=== PATIENT | male | born 1980 | race Caucasian/White ===

== ENCOUNTER 2024-12-15 21:40 | Emergency (ER) | payer OTHER ==
[~2024-12-15] VITALS: Ht 182.8 cm; Wt 83.9 kg
[2024-12-15] MEDS ORDERED: IBUPROFEN400 MG PO (21:48)
[2024-12-15] MEDS ORDERED: SUBOXONE 8 MG-1 EACH PO (21:48)
[2024-12-15] MEDS ORDERED: LAMICTAL25 MG PO (21:48)
[2024-12-16] MEDS ORDERED: NAPROXEN250 MG PO (00:49)
[2024-12-16] MEDS ORDERED: Ketorolac Tromethamine 30 MG/ML VIAL IM ONE (00:55)
== END 2024-12-16 02:01 | disposition home or self-care (01) ==
LOC: ED 21:40
DX: S00.12XA Contusion of left eyelid and periocular area, initial encounter (principal); R51.9 Headache, unspecified; M54.2 Cervicalgia; Z88.6 Allergy status to analgesic agent; Z79.899 Other long term (current) drug therapy; Y04.2XXA Assault by strike against or bumped into by another person, initial encounter; Y93.89 Activity, other specified; Y92.89 Other specified places as the place of occurrence of the external cause; Y99.8 Other external cause status

== ENCOUNTER 2025-01-04 23:59 | Emergency (ER) | payer OTHER ==
[~2025-01-04] VITALS: Ht 177.8 cm; Wt 81.6 kg
[~2025-01-04 23:59] MED LIST: IBUPROFEN400 MG PO; LAMICTAL25 MG PO; NAPROXEN250 MG PO; SUBOXONE 8 MG-1 EACH PO
[2025-01-05 00:30] LABS: BASO # 0.0 10*3/uL (0.0-0.1); BASO % 0.4 % (0.0-1.0); EOS # 0.1 10*3/uL (0.0-0.4); EOS % 1.1 % (1.0-4.0); MEAN CELL VOLUME 96.7 fl (80.0-94.0); MEAN CORPUSCULAR HGB 32.2 pg (27.0-31.0); MEAN PLATELET VOLUME 9.3 fl (9.6-12.3); MONO # 0.6 10*3/uL (0.1-1.0); MONO % 6.6 % (3.0-9.0); NEUT # 6.6 10*3/uL (2.3-7.9); NEUT % 74.0 % (47.0-73.0); NUCLEATED RED BLOOD CELL 0.0 % (0.0-0.0); NUCLEATED RED BLOOD CELL 0.0 10*3/uL (0.0-0.0); PLATELET COUNT AUTOMATED 254 10*3/uL (130-400); RED CELL DISTRI WIDTH 13.3 % (0-14.5)
[2025-01-05 00:51] LABS: BUN 10 mg/dl (9-23); CPK 156 U/L (34-171); SGPT/ALT 61 U/L (5-49)
[2025-01-05 00:59] LABS: BILIRUBIN Negative (Negative); BLOOD Trace-Lysed (Negative); CLARITY Clear (Clear); COLOR Yellow (Yellow); KETONE Negative (Negative); LEUKO ESTERASE Negative (Negative); NITRITE Negative (Negative); PH 5.5 (4.5-8.0); SPECIFIC GRAVITY 1.010 (1.001-1.030); UROBILINOGEN 0.2 E.U./dl (0.0-1.0)
[2025-01-05 01:07] LABS: URINE AMPHETAMINES Negative (1000ng/ml); URINE BARBITURATES Positive (200ng/ml); URINE BENZODIAZEPINES Negative (200ng/ml); URINE CANNABINOIDS (THC) Negative (50ng/ml); URINE COCAINE Negative (300ng/ml); URINE METHADONE Negative (300ng/ml); URINE OPIATES Negative (300ng/ml); URINE PHENCYCLIDINE Negative (25ng/ml)
[2025-01-05 01:13] LABS: WBC 0-2 wbc/hpf (0-5)
[2025-01-05] MEDS ORDERED: SODIUM CHLORIDE 0.9% 1,000 ML IV ONE (04:20)
[2025-01-05] MEDS ORDERED: BUPRENORP-NALO1 EAC1 SL (04:30)
== END 2025-01-05 05:28 | disposition short-term general hospital (02) ==
LOC: ED 23:59
PROVIDERS: Emergency Medicine
DX: S62.511A Displaced fracture of proximal phalanx of right thumb, initial encounter for closed fracture (principal); S22.070A Wedge compression fracture of T9-T10 vertebra, initial encounter for closed fracture; Z79.899 Other long term (current) drug therapy; Z88.5 Allergy status to narcotic agent; Z88.6 Allergy status to analgesic agent; Z88.8 Allergy status to other drugs, medicaments and biological substances; W22.8XXA Striking against or struck by other objects, initial encounter; Y93.89 Activity, other specified; Y92.89 Other specified places as the place of occurrence of the external cause; Y99.8 Other external cause status